=== PATIENT | female | born 1980 | race Native Hawaiian/Other Pacific Islander ===

== ENCOUNTER → 2017-12-03 07:55 | Outpatient (CLI) | payer OTHER | END | disposition home or self-care (01) | LOC: AMB 07:55 | DX: S10.93XA Contusion of unspecified part of neck, initial encounter (principal); V59.9XXA Occupant (driver) (passenger) of pick-up truck or van injured in unspecified traffic accident, initial encounter; Y93.89 Activity, other specified; Y92.89 Other specified places as the place of occurrence of the external cause ==

== ENCOUNTER 2017-12-03 08:59 | Emergency (ER) | payer OTHER ==
[~2017-12-03] VITALS: Ht 157.5 cm; Wt 74.8 kg
[2017-12-03 09:13] VITALS: BP 145/106; TEMP 97.9
== END 2017-12-03 12:08 | disposition home or self-care (01) ==
LOC: ED 08:59 → EDBD 08:59 → ED 12:08
DX: S16.1XXA Strain of muscle, fascia and tendon at neck level, initial encounter (principal); S39.012A Strain of muscle, fascia and tendon of lower back, initial encounter; S40.012A Contusion of left shoulder, initial encounter; V59.3XXA Occupant (driver) (passenger) of pick-up truck or van injured in unspecified nontraffic accident, initial encounter
CPT/HCPCS: 99283